=== PATIENT | female | born 1970 | race Caucasian/White ===

== ENCOUNTER 2020-07-16 13:32 | Emergency (ER) | payer MEDICAID ==
[~2020-07-16] VITALS: Ht 157.5 cm; Wt 43.9 kg
[~2020-07-16 13:32] MED LIST: CLIN150C8 PO; FLO0.4C PO; GABA600T PO; GABA600T13 PO; HYDR-4383 PO; HYDR28CR14 TOP; NITR100C6 PO; SERT25TA PO
[2020-07-16 16:03] VITALS: BP 131/86
[2020-07-16] MEDS ORDERED: PRED20TA PO (17:10)
== END 2020-07-16 17:28 | disposition home or self-care (01) ==
LOC: ER 13:32
DX: L23.9 Allergic contact dermatitis, unspecified cause (principal); Z87.448 Personal history of other diseases of urinary system; F15.10 Other stimulant abuse, uncomplicated; Z56.0 Unemployment, unspecified; Z59.0 Homelessness; Z88.0 Allergy status to penicillin; Z88.2 Allergy status to sulfonamides; Z79.899 Other long term (current) drug therapy
CPT/HCPCS: 99283

== ENCOUNTER 2020-08-16 10:43 | Emergency (ER) | payer MEDICAID ==
[~2020-08-16] VITALS: Ht 160 cm; Wt 41.7 kg
[~2020-08-16 10:43] MED LIST changes: +PRED20TA PO
[2020-08-16 14:50] VITALS: BP 124/82
[2020-08-16] MEDS ORDERED: clindamycin 150mg capsule PO ONE (17:20)
[2020-08-16] MEDS ORDERED: HYDROcodone/acetaminophen 5mg/325mg tablet PO ONE (17:20)
[2020-08-16] MEDS ORDERED: CLIN-97 PO (17:20)
== END 2020-08-16 17:46 | disposition home or self-care (01) ==
LOC: ER 10:46
DX: K08.89 Other specified disorders of teeth and supporting structures (principal); M19.90 Unspecified osteoarthritis, unspecified site; F31.9 Bipolar disorder, unspecified; F20.9 Schizophrenia, unspecified; F15.90 Other stimulant use, unspecified, uncomplicated; Z86.69 Personal history of other diseases of the nervous system and sense organs; Z87.442 Personal history of urinary calculi; Z98.890 Other specified postprocedural states; Z72.89 Other problems related to lifestyle; Z56.0 Unemployment, unspecified; Z59.0 Homelessness; Z88.2 Allergy status to sulfonamides; Z88.0 Allergy status to penicillin; Z79.2 Long term (current) use of antibiotics; Z79.899 Other long term (current) drug therapy
CPT/HCPCS: 99283

== ENCOUNTER 2021-06-09 18:25 | Emergency (ER) | payer MEDICAID ==
[~2021-06-09] VITALS: Ht 157.5 cm; Wt 52.3 kg
[~2021-06-09 18:25] MED LIST changes: +CLIN-97 PO; -PRED20TA PO
[2021-06-09 18:36] VITALS: BP 133/83
[2021-06-09] MEDS ORDERED: DOXYCYCLINE 100MG CAPSULE PO STA (19:19)
[2021-06-09] MEDS ORDERED: cephalexin 250mg capsule PO ONE (19:20)
[2021-06-09] MEDS ORDERED: CEPH250T PO (19:21)
[2021-06-09] MEDS ORDERED: DOXY100C76 PO (19:21)
== END 2021-06-09 19:38 | disposition home or self-care (01) ==
LOC: ER 18:26
DX: L02.01 Cutaneous abscess of face (principal); L03.211 Cellulitis of face; L03.213 Periorbital cellulitis; Z87.442 Personal history of urinary calculi; M79.7 Fibromyalgia; M19.90 Unspecified osteoarthritis, unspecified site; F15.90 Other stimulant use, unspecified, uncomplicated; Z98.891 History of uterine scar from previous surgery; Z56.0 Unemployment, unspecified; Z59.00 Homelessness unspecified; Z72.89 Other problems related to lifestyle; Z88.0 Allergy status to penicillin; Z88.2 Allergy status to sulfonamides; Z79.2 Long term (current) use of antibiotics; Z79.899 Other long term (current) drug therapy
CPT/HCPCS: 10060; 99283

== ENCOUNTER 2022-04-29 20:20 | Emergency (ER) | payer MEDICAID ==
[~2022-04-29] VITALS: Ht 157.5 cm; Wt 50.0 kg
[2022-04-29 20:49] VITALS: BP 134/75
[2022-04-29] MEDS ORDERED: bacitracin 15gm ointment TP ONE (21:10)
[2022-04-29] MEDS ORDERED: cephalexin 250mg capsule PO ONE (21:10)
[2022-04-29] MEDS ORDERED: ibuprofen 200mg tablet PO ONE (21:10)
[2022-04-29] MEDS ORDERED: CEPH-585 PO (21:21)
== END 2022-04-29 21:28 | disposition home or self-care (01) ==
LOC: ER 20:21
DX: L03.211 Cellulitis of face (principal); M19.90 Unspecified osteoarthritis, unspecified site; M79.7 Fibromyalgia; F15.90 Other stimulant use, unspecified, uncomplicated; F31.9 Bipolar disorder, unspecified; F20.9 Schizophrenia, unspecified; Z87.442 Personal history of urinary calculi; Z59.00 Homelessness unspecified; Z56.0 Unemployment, unspecified; Z72.89 Other problems related to lifestyle; Z88.0 Allergy status to penicillin; Z88.2 Allergy status to sulfonamides; Z79.899 Other long term (current) drug therapy
CPT/HCPCS: 99284

== ENCOUNTER 2023-04-01 15:16 | Emergency (ER) | payer MEDICAID ==
[~2023-04-01] VITALS: Ht 157.5 cm; Wt 49.5 kg
[~2023-04-01 15:16] MED LIST changes: +CEPH-585 PO; +CLIN-214 PO; -CLIN150C8 PO
[2023-04-01 15:42] VITALS: BP 105/77; PULSE 93; TEMP 98.3; O2SAT 98
[2023-04-01 16:11] VITALS: RESP 16
[2023-04-01] MEDS: ketorolac tromethamine 15mg/ml inj. IM ONE (16:11)
== END 2023-04-01 17:09 | disposition home or self-care (01) ==
LOC: ER 15:16
DX: M71.21 Synovial cyst of popliteal space [Baker], right knee (principal); M23.91 Unspecified internal derangement of right knee; M19.90 Unspecified osteoarthritis, unspecified site; F15.90 Other stimulant use, unspecified, uncomplicated; Z88.0 Allergy status to penicillin; Z88.2 Allergy status to sulfonamides; Z79.2 Long term (current) use of antibiotics; Z79.899 Other long term (current) drug therapy
CPT/HCPCS: 73564; 96372; 99283; J1885

== ENCOUNTER 2023-04-28 16:00 | Emergency (ER) | payer MEDICAID ==
[~2023-04-28] VITALS: Ht 157.5 cm; Wt 47.2 kg
[2023-04-28 16:03] VITALS: BP 102/65; PULSE 96; RESP 18; TEMP 98; O2SAT 98
[2023-04-28 17:31] LABS: BILIRUBIN,URINE NEGATIVE (Neg); CLARITY,URINE CLEAR (Clear); COLOR,URINE YELLOW (Yellow); GLUCOSE, URINE NEGATIVE (Neg); KETONES,URINE NEGATIVE (Neg); LEUKOCYTE ESTERASE ,URINE NEGATIVE (Neg); NITRITES, URINE NEGATIVE (Neg); OCCULT BLOOD,URINE TRACE-INTACT (Neg); PROTEIN,URINE NEGATIVE (Neg); UROBILINOGEN,URINE 0.2 E.U/dL (0.2-1.0)
[2023-04-28 17:43] LABS: UA COLLECTION TYPE CLN CATCH MIDSTREAM
[2023-04-28 17:56] LABS: BACTERIA,URINE FEW /HPF (Neg); MUCUS STRANDS FEW /LPF (Neg); RBC,URINE 0-2 /HPF (0-2); SQUAMOUS EPITHELIAL CELL,UR FEW /LPF (FEW); WBC,URINE 0-4 /HPF (0-4)
== END 2023-04-28 19:31 | disposition home or self-care (01) ==
LOC: ER 16:00
DX: B34.9 Viral infection, unspecified (principal); E86.0 Dehydration; Z20.822 Contact with and (suspected) exposure to COVID-19; F20.9 Schizophrenia, unspecified; Z79.899 Other long term (current) drug therapy; Z87.442 Personal history of urinary calculi; Z72.89 Other problems related to lifestyle; F15.90 Other stimulant use, unspecified, uncomplicated; Z59.00 Homelessness unspecified; Z56.0 Unemployment, unspecified; Z88.0 Allergy status to penicillin; Z88.2 Allergy status to sulfonamides; Z79.2 Long term (current) use of antibiotics
CPT/HCPCS: 36415; 71045; 81001; 87502; 87503; 87811; 99284

== ENCOUNTER 2023-05-28 10:24 | Emergency (ER) | payer MEDICAID ==
[~2023-05-28] VITALS: Ht 157.5 cm; Wt 54.5 kg
[~2023-05-28 10:24] MED LIST changes: +ATOM25CA6 PO; +BREX2TAB PO; +BUPR-73 PO; +BUPR1TAB44 SL; -CEPH-585 PO; +CHOL100046 PO; -CLIN-214 PO; -CLIN-97 PO; -FLO0.4C PO; -GABA600T PO; -HYDR-4383 PO; -HYDR28CR14 TOP; +HYDR453.2 TP; +LIDO700A47 TP; +NAPR220T67 PO; +NICO-687 TD; +NICO-907 BC; -NITR100C6 PO; -SERT25TA PO
[2023-05-28 11:04] VITALS: BP 124/82; PULSE 99; RESP 17; TEMP 98; O2SAT 99
[2023-05-28] MEDS ORDERED: BUPR1FIL17 SL (12:47)
== END 2023-05-28 13:02 | disposition home or self-care (01) ==
LOC: ER 10:25
DX: G89.29 Other chronic pain (principal); Z76.0 Encounter for issue of repeat prescription; M19.90 Unspecified osteoarthritis, unspecified site; M79.7 Fibromyalgia; F15.90 Other stimulant use, unspecified, uncomplicated; Z56.0 Unemployment, unspecified; Z59.00 Homelessness unspecified; Z88.0 Allergy status to penicillin; Z88.2 Allergy status to sulfonamides; Z88.8 Allergy status to other drugs, medicaments and biological substances; Z79.899 Other long term (current) drug therapy
CPT/HCPCS: 99281

== ENCOUNTER 2023-06-05 07:57 | Emergency (ER) | payer MEDICAID ==
[~2023-06-05] VITALS: Ht 157.5 cm; Wt 52.8 kg
[2023-06-05 08:02] VITALS: BP 112/75; PULSE 114; RESP 18; TEMP 97.7; O2SAT 98
[2023-06-05 10:43] LABS: BILIRUBIN,URINE NEGATIVE (Neg); CLARITY,URINE SLIGHTLY CLOUDY (Clear); COLOR,URINE YELLOW (Yellow); GLUCOSE, URINE NEGATIVE (Neg); KETONES,URINE NEGATIVE (Neg); LEUKOCYTE ESTERASE ,URINE NEGATIVE (Neg); NITRITES, URINE NEGATIVE (Neg); OCCULT BLOOD,URINE NEGATIVE (Neg); PROTEIN,URINE NEGATIVE (Neg); UROBILINOGEN,URINE 0.2 E.U/dL (0.2-1.0)
[2023-06-05 10:44] LABS: BASOPHILS % (AUTO) 0.6 % (0-1); EOSINOPHILS # (AUTO) 0.1 X10'3 (0-0.9); EOSINOPHILS % (AUTO) 2.2 % (0-6); HEMATOCRIT 36.7 % (35.0-45.0); HEMOGLOBIN 12.1 g/dl (12.0-16.0); LYMPHOCYTES # (AUTO) 1.2 X10'3 (1.1-4.8); LYMPHOCYTES % (AUTO) 25.6 % (21-51); MEAN CORPUSCULAR HEMOGLOBIN 28.5 PG (27.0-31.0); MEAN CORPUSCULAR VOLUME 86.6 FL (78-98); MEAN PLATELET VOLUME 8.6 FL (7.4-10.4); MONOCYTES # (AUTO) 0.5 X10'3 (0-0.9); MONOCYTES % (AUTO) 9.8 % (2-12); NEUTROPHILS % (AUTO) 61.8 % (42-75); PLATELET COUNT 203 X10'3 (140-440); RED BLOOD COUNT 4.24 X10'6 (4.20-5.60); RED CELL DISTRIBUTION WIDTH 14.8 % (11.5-14.5); WHITE BLOOD COUNT 4.8 X10'3 (4.5-11.0)
[2023-06-05 10:49] LABS: SQUAMOUS EPITHELIAL CELL,UR MANY /LPF (FEW); UA COLLECTION TYPE CLN CATCH MIDSTREAM
[2023-06-05 10:50] LABS: BACTERIA,URINE FEW /HPF (Neg); RBC,URINE NONE SEEN /HPF (0-2); WBC,URINE 0-4 /HPF (0-4)
[2023-06-05] MEDS: CefTRIAXone/D5W-Rocephin 1gm 50 ML IV ONE (11:30)
[2023-06-05] MEDS ORDERED: clindamycin 300mg/D5W 50mL 50 ML IV SCH ×2 (11:40→14:00)
[2023-06-05 11:43] LABS: ALANINE AMINOTRANSFERASE 42 U/L (12-78); ALBUMIN 3.3 G/DL (3.4-5.0); ALBUMIN/GLOBULIN RATIO 0.8 (1.1-1.5); ALKALINE PHOSPHATASE 98 IU/L (46-116); ANION GAP 10 (8-16); ASPARTATE AMINO TRANSFERASE 28 U/L (10-37); BILIRUBIN,TOTAL 0.3 MG/DL (0.1-1.0); BLOOD UREA NITROGEN 14 MG/DL (7-18); BUN/CREATININE RATIO 18.9 (10.0-20.0); C-REACTIVE PROTEIN 1.41 MG/DL (0.0-0.5); CALCIUM 8.5 MG/DL (8.5-10.1); CHLORIDE 103 MMOL/L (99-107); CREATININE 0.74 MG/DL (0.40-0.90); GLUCOSE 102 MG/DL (70-104); POTASSIUM 4.2 MMOL/L (3.5-5.1); SODIUM 139 MMOL/L (135-145); TOTAL CARBON DIOXIDE 25.7 MMOL/L (24-32); TOTAL PROTEIN 7.3 G/DL (6.4-8.2); eCRCL 72 ML/MIN; eGFR 83 ML/MIN
[2023-06-05] MEDS: clindamycin 300mg/D5W 50mL 50 ML IV ONE (12:01)
[2023-06-05 16:24] LABS: URINE AMPHETAMINE SCREEN NEGATIVE (Neg); URINE BARBITUATE SCREEN NEGATIVE (Neg); URINE BENZODIAZEPINES SCREEN NEGATIVE (Neg); URINE CANNABINOID SCREEN NEGATIVE (Neg); URINE COCAINE SCREEN NEGATIVE (Neg); URINE METHADONE SCREEN NEGATIVE (Neg); URINE OPIATE SCREEN NEGATIVE (Neg); URINE PHENCYCLIDINE SCREEN NEGATIVE (Neg)
== END 2023-06-05 12:55 | disposition home or self-care (01) ==
LOC: ER 07:58
DX: L03.011 Cellulitis of right finger (principal); F20.9 Schizophrenia, unspecified; F15.90 Other stimulant use, unspecified, uncomplicated; Z88.8 Allergy status to other drugs, medicaments and biological substances; Z88.0 Allergy status to penicillin; Z98.890 Other specified postprocedural states; Z72.89 Other problems related to lifestyle; Z59.00 Homelessness unspecified; Z56.0 Unemployment, unspecified
CPT/HCPCS: 10060; 36415; 73130; 80053; 80305; 81001; 83605; 84145; 85025; 85651; 86140; 87040; 87070; 87077; 87186; 96365; 96366; 96368; 99284; A6222; J0696; J3490; A6258; A6449

== ENCOUNTER 2023-06-12 16:08 | Emergency (ER) | payer MEDICAID ==
[~2023-06-12] VITALS: Ht 157.5 cm; Wt 53.2 kg
[2023-06-12 16:24] VITALS: BP 115/79; PULSE 94; RESP 18; TEMP 97.3; O2SAT 99
== END 2023-06-12 17:07 | disposition home or self-care (01) ==
LOC: ER 16:09
DX: L03.011 Cellulitis of right finger (principal); M19.90 Unspecified osteoarthritis, unspecified site; F15.90 Other stimulant use, unspecified, uncomplicated; Z88.5 Allergy status to narcotic agent; Z88.0 Allergy status to penicillin; Z88.2 Allergy status to sulfonamides; Z79.899 Other long term (current) drug therapy; Z98.890 Other specified postprocedural states
CPT/HCPCS: 99283

== ENCOUNTER 2023-06-14 19:58 | Emergency (ER) | payer MEDICAID ==
[~2023-06-14] VITALS: Ht 157.5 cm; Wt 52.8 kg
[2023-06-14 20:01] VITALS: BP 125/69; PULSE 91; RESP 18; TEMP 97; O2SAT 99
[2023-06-14] MEDS ORDERED: BUPR1TAB39 SL (20:22)
== END 2023-06-14 20:34 | disposition home or self-care (01) ==
LOC: ER 19:58
DX: G89.29 Other chronic pain (principal); F20.9 Schizophrenia, unspecified; F15.90 Other stimulant use, unspecified, uncomplicated; Z76.0 Encounter for issue of repeat prescription; Z88.8 Allergy status to other drugs, medicaments and biological substances; Z88.0 Allergy status to penicillin; Z88.2 Allergy status to sulfonamides; Z79.899 Other long term (current) drug therapy; Z87.442 Personal history of urinary calculi; Z98.890 Other specified postprocedural states; Z72.89 Other problems related to lifestyle; Z59.00 Homelessness unspecified; Z56.0 Unemployment, unspecified
CPT/HCPCS: 99281

== ENCOUNTER 2023-06-19 11:43 | Emergency (ER) | payer MEDICAID ==
[~2023-06-19] VITALS: Ht 167.6 cm; Wt 51.0 kg
[~2023-06-19 11:43] MED LIST changes: +BUPR1TAB39 SL
[2023-06-19 11:58] VITALS: BP 116/88; PULSE 89; RESP 18; TEMP 98; O2SAT 98
[2023-06-19] MEDS ORDERED: GABA600T13 PO (12:29)
== END 2023-06-19 12:36 | disposition home or self-care (01) ==
LOC: ER 11:43
DX: Z76.0 Encounter for issue of repeat prescription (principal)
CPT/HCPCS: 99281

== ENCOUNTER 2024-08-21 16:54 | Emergency (ER) | payer MEDICAID ==
[~2024-08-21] VITALS: Ht 157.5 cm; Wt 45.4 kg
[~2024-08-21 16:54] MED LIST changes: +GABA-1405 PO; -GABA600T13 PO
[2024-08-21 16:59] VITALS: TEMP 98.5
--- NOTE | 2024-08-21 17:07 | Physician Documentation ---
History of Present Illness ~ Chief Complaint: Flank Pain Stated Complaint: FEVER Time Seen by MD: 17:07 Primary Medical Doctor: [facility] This is a 53-year-old female who presents to the emergency department reporting that she has felt unwell for the last three days, thinks she has a fever, does note some dysuria at the end of urination, and does have some flank pain. She also notes that she has been out of her chronic gabapentin for the last several days. She notes a history of head injury, mental illness, fibromyalgia. Medication Reconciliation Allergies: Coded Allergies: trazodone (Verified Allergy, Severe, seizures, 07/10/24) Penicillins (Verified Allergy, Unknown, 07/10/24) Sulfa (Sulfonamide Antibiotics) (Verified Allergy, Unknown, 07/10/24) Scheduled Atomoxetine HCl (Atomoxetine HCl), 25 MG PO DAILY Brexpiprazole (Rexulti), 1 TAB PO HS Buprenorphine HCl/Naloxone HCl (Buprenorphn-Naloxn 2-0.5 mg Tb), 1 TAB SL BID@0800,1800 Buprenorphine HCl/Naloxone HCl (Zubsolv 1.4-0.36 mg Tablet Sl), 1 TAB SL DAILY Bupropion HCl (Bupropion HCl Sr), 1 TAB PO BIDBL Cholecalciferol (Vitamin D3) (Vitamin D3), 1,000 UNIT PO DAILY Doxycycline Hyclate (Doxycycline Hyclate), 1 CAP PO Q12H Gabapentin (Gabapentin), 2 TAB PO TID Gabapentin (Gabapentin), 2 TAB PO Q8H Hydrocortisone (Hydrocortisone), 1 APPLIC TP BID Nicotine 21 MG Patch* (Habitrol 21 MG Patch*), 1 PATCH TD DAILY Scheduled PRN Lidocaine (Lidocaine), 1 PATCH TP DAILY PRN for pain Naproxen Sodium (Aleve), 220 MG PO BID PRN for pain Nicotine Polacrilex (Nicotine Lozenge), 2 MG BC TID PRN for NICOTINE CRAVING Past Medical History Past Medical History: Seizures, Kidney Stones, UTI, Arthritis, Fibromyalgia, Psoriasis, *INFECTIOUS DZ*, *PSYCH*, Bipolar, Schizophrenia Past Surgical History: Patient History: FH: emphysema FATHER FH: manic depression MOTHER Alcohol Use: Occasionally Drug Use: methamphetamine Lives with: Other Lives In: Homeless Occupation: unemployed Review of Systems ROS As stated above in the HPI, otherwise all systems are reviewed and negative. Physical Exam Vital Signs: Temperature: 98.5, Source: Oral, Heart Rate: 79, Respiratory Rate: 16, BP: 113/78, Pulse Oximetry: 98, Weight: 45.350 Oxygen Flow Rate: 0 Physical Exam General: Alert, no apparent distress. Neck: Full range of motion. Respiratory: Lungs clear, no respiratory distress. Chest: No accessory muscle use. Cardiovascular: Regular rate and rhythm, no murmurs. Gastrointestinal: Soft, nontender, nondistended. Bowels sounds present. Extremities: Normal range of motion, no deformity. Neurologic: Oriented x4. Psychiatric: Normal mood and affect. Skin: Normal color, warm and dry. No edema, no ecchymosis. Progress Results/Orders Results/Orders Orders - QIANA STANTON REVIEW TRAINER * Miscellaneous Nursing Orders (08/21/24 17:47) Completed Orders - QIANA STANTON REVIEW TRAINER Ceftriaxone Im Kit W/Lidocaine (Rocephin (08/21/24 17:50) Ondansetron Disint. Tablet (Zofran Odt T (08/21/24 17:50) Gabapentin Capsule (Neurontin Capsule) (08/21/24 17:50) Acetaminophen 325mg Tablet (Tylenol Tabl (08/21/24 17:50) Gabapentin Capsule (Neurontin Capsule) (08/21/24 17:50) Vital Signs 08/21/24 16:59 Temp 98.5 Pulse 79 Resp 16 B/P (MAP) 113/78 Pulse Ox 98 O2 Flow Rate 0 Laboratory Tests Test 08/21/24 17:05 Urine Specimen Description Cln catch midstream Urine Color Yellow Urine Clarity Cloudy Urine pH 6.5 Urine Specific [place] 1.020 Urine Protein Negative Urine Glucose (UA) Negative Urine Ketones Trace H Urine Occult Blood Negative Urine Nitrite Positive H Urine Bilirubin Negative Urine Urobilinogen 0.2 Urine Leukocyte Esterase Small H Urine RBC None seen Urine WBC 20-30 H Urine Squamous Epithelial Cells Few Urine Renal Cells Few Urine Amorphous Phosphates 3+ Urine Bacteria 4+ Urine Culture Indicated Indicated Volume Urine Centrifuged 10 ml Urine Comment Medical Decision Making Additional Comment 53-year-old female presents due to concerns for urinary tract infection symptoms. She does if your systemically unwell, and endorses possible fevers and also nausea. She is un-housed, it is a very hot day, and it is likely that she is somewhat dehydrated. However, her vital signs are normal. She is found to have urinary tract infection. She does also note that she has been out of her chronic gabapentin 1200 mg t.i.d. for the last several days. This could also be the reason that she is having her symptoms. She will have a refill of her gabapentin. She will be treated in the emergency department with ceftriaxone 1 g IM and sent home on doxycycline due to allergies to penicillins and sulfa antibiotics. She is to return if worse. Departure Time of Disposition: 17:48 Disposition: HOME / SELF CARE / HOMELESS Impression: Primary Impression: Acute urinary tract infection Additional Impression: Medication refill Condition: Stable Discharge Instructions: Urinary Tract Infection, Adult Additional Instructions: You are given a refill on your gabapentin. Please see your primary care provider or [facility] for further refills. You have a urinary tract infection. You were given your 1st dose of antibiotics as an injection in the emergency department. Start your doxycycline once you have received that prescription. Please return if worse. Please stay hydrated. Use the ondansetron if needed for nausea. Referrals: NO PRIMARY CARE PROVIDER (PCP) Prescriptions Ondansetron 8mg ODT (Ondansetron Odt) 8 Mg Tab.rapdis 1 TAB PO Q8H for nausea/vomiting for 2 Days, #6 TAB 0 Refills Prov: QIANA STANTON NP 08/21/24 Doxycycline Hyclate (Doxycycline Hyclate) 100 Mg Capsule 1 CAP PO Q12H for 7 Days, #14 CAP Prov: QIANA STANTON NP 08/21/24 Gabapentin (Gabapentin) 600 Mg Tablet 2 TAB PO Q8H for 30 Days, #180 TAB 0 Refills Prov: QIANA STANTON NP 08/21/24 Education Educated: Patient, Family Educated regarding: diagnosis, treatment, prognosis, need for follow up Signature Scribe Signature: no scribe Attestation: The note accurately reflects work and decisions made by me.Qiana Youngblood NP 08/21/24 17:06 QIANA STANTON NP Aug 21, 2024 17:07
[2024-08-21] MEDS ORDERED: GABA-1405 PO (17:26)
[2024-08-21 17:36] LABS: LEUKOCYTE ESTERASE ,URINE SMALL (Neg); NITRITES, URINE POSITIVE (Neg); OCCULT BLOOD,URINE NEGATIVE (Neg)
[2024-08-21 17:46] LABS: UA COLLECTION TYPE CLN CATCH MIDSTREAM
[2024-08-21 17:48] LABS: AMORPHOUS PHOSPHATES 3+; RENAL CELLS, URINE FEW /HPF; SQUAMOUS EPITHELIAL CELL,UR FEW /LPF (FEW)
[2024-08-21] MEDS ORDERED: DOXY-1 PO (17:50)
[2024-08-21] MEDS ORDERED: ONDA-245 PO (18:01)
[2024-08-21] MEDS: ondansetron 4mg rapidly disintigrating tab PO ONE (18:10)
[2024-08-21] MEDS: CefTRIAXone 1000mg IM Kit (w/lidocaine diluent) IM ONE (18:11)
[2024-08-21 18:26] VITALS: BP 115/83; PULSE 73; RESP 16; O2SAT 98
[2024-08-22] MEDS ORDERED: BUPR1FIL3 SL (09:49)
[2024-08-22] MEDS ORDERED: NALO4SPR22 (10:42)
[2024-08-25] MEDS ORDERED: MELO-102 PO (11:19)
== END 2024-08-21 18:27 | disposition home or self-care (01) ==
LOC: ER 16:55
DX: N39.0 Urinary tract infection, site not specified (principal); Z76.0 Encounter for issue of repeat prescription; R50.9 Fever, unspecified; F20.9 Schizophrenia, unspecified; F31.9 Bipolar disorder, unspecified; M19.90 Unspecified osteoarthritis, unspecified site; M79.7 Fibromyalgia; F15.90 Other stimulant use, unspecified, uncomplicated; Z88.0 Allergy status to penicillin; Z88.2 Allergy status to sulfonamides; Z88.8 Allergy status to other drugs, medicaments and biological substances
CPT/HCPCS: 81001; 87077; 87088; 87186; 96372; 99284; J0696

== ENCOUNTER 2024-08-22 09:40 | Emergency (ER) | payer MEDICAID ==
[~2024-08-22] VITALS: Ht 157.5 cm; Wt 42.9 kg
[~2024-08-22 09:40] MED LIST changes: +DOXY-1 PO; +ONDA-245 PO
--- NOTE | 2024-08-22 09:44 | Physician Documentation ---
HPI ~ General Stated Complaint: MED REQUEST Time Seen by MD: 09:43 Primary Medical Doctor: [facility] History of Present Illness HPI Comments Presents to the ER requesting that medications that were sent yesterday be re- sent to another pharmacy that is open. In addition, she notes that she is out of suboxone and neglected to request a refill on this yesterday. Medication Reconciliation Allergies: Coded Allergies: trazodone (Verified Allergy, Severe, seizures, 07/10/24) Penicillins (Verified Allergy, Unknown, 07/10/24) Sulfa (Sulfonamide Antibiotics) (Verified Allergy, Unknown, 07/10/24) Scheduled Atomoxetine HCl (Atomoxetine HCl), 25 MG PO DAILY Brexpiprazole (Rexulti), 1 TAB PO HS Buprenorphine HCl/Naloxone HCl (Buprenorphn-Naloxn 2-0.5 mg Tb), 1 TAB SL BID@ 0800,1800 Buprenorphine HCl/Naloxone HCl (Zubsolv 1.4-0.36 mg Tablet Sl), 1 TAB SL DAILY Buprenorphine Hcl/Naloxone Hcl (Suboxone 8 Mg-2 Mg Sl Film), 1 STRIP SL BID Bupropion HCl (Bupropion HCl Sr), 1 TAB PO BIDBL Cholecalciferol (Vitamin D3) (Vitamin D3), 1,000 UNIT PO DAILY Doxycycline Hyclate (Doxycycline Hyclate), 1 CAP PO Q12H Gabapentin (Gabapentin), 2 TAB PO TID Gabapentin (Gabapentin), 2 TAB PO Q8H Hydrocortisone (Hydrocortisone), 1 APPLIC TP BID Naloxone HCl (Naloxone HCl), 1 SPR NA as needed Nicotine 21 MG Patch* (Habitrol 21 MG Patch*), 1 PATCH TD DAILY Ondansetron 8mg ODT (Ondansetron Odt), 1 TAB PO Q8H Scheduled PRN Lidocaine (Lidocaine), 1 PATCH TP DAILY PRN for pain Naproxen Sodium (Aleve), 220 MG PO BID PRN for pain Nicotine Polacrilex (Nicotine Lozenge), 2 MG BC TID PRN for NICOTINE CRAVING Past Medical History Past Medical History: Seizures, Kidney Stones, UTI, Arthritis, Fibromyalgia, Psoriasis, *INFECTIOUS DZ*, *PSYCH*, Bipolar, Schizophrenia Past Surgical History: Patient History: FH: emphysema FATHER FH: manic depression MOTHER Alcohol Use: Occasionally Drug Use: methamphetamine Lives with: Other Lives In: Homeless Occupation: unemployed Review of Systems ROS As stated above in the HPI, otherwise all systems are reviewed and negative. Physical Exam Physical Exam Physical Exam General: Alert, no apparent distress. Neck: Full range of motion. Respiratory: Lungs clear, no respiratory distress. Chest: No accessory muscle use. Cardiovascular: Regular rate and rhythm, no murmurs. Gastrointestinal: Soft, nontender, nondistended. Bowels sounds present. Extremities: Normal range of motion, no deformity. Neurologic: Oriented x4. Psychiatric: Normal mood and affect. Skin: Normal color, warm and dry. No edema, no ecchymosis. Progress Results/Orders Results/Orders Completed Orders - QIANA STANTON NP Buprenorphine/Naloxone Sl Film (Suboxone (08/22/24 09:50) Buprenorphine/Naloxone Sl Film (Suboxone (08/22/24 09:50) Vital Signs 08/22/24 09:47 Temp 98.2 Pulse 98 Resp 16 B/P (MAP) 143/82 Pulse Ox 98 O2 Flow Rate 0 Medical Decision Making Differential Dx:Considerations: Include: Adverse circumstances, Economic, Psychosocial, Medical services unavail., Medication refill, Medication non- compliance Departure Time of Disposition: 10:40 Disposition: 01 HOME / SELF CARE / HOMELESS Impression: Primary Impression: UTI (urinary tract infection) Additional Impressions: Medication refill Opioid dependence Additional Impression Text Take the medications as prescribed. Return if worse, otherwise followup with your primary care. Discharge Instructions: Opioid Use Disorder Referrals: NO PRIMARY CARE PROVIDER (PCP) Prescriptions Naloxone HCl (Naloxone HCl) 4 Mg/Actuation [place] 1 SPR NA as needed for opioid overdose for 1 Day, #1 SPRAYS Prov: QIANA STANTON NP 08/22/24 Buprenorphine Hcl/Naloxone Hcl (Suboxone 8 Mg-2 Mg Sl Film) 8 Mg-2 Mg Film 1 STRIP SL BID for 7 Days, #14 STRIP Prov: QIANA STANTON NP 08/22/24 Ondansetron 8mg ODT (Ondansetron Odt) 8 Mg Tab.rapdis 1 TAB PO Q8H for nausea/vomiting for 2 Days, #6 TAB 0 Refills Prov: QIANA STANTON NP 08/22/24 Doxycycline Hyclate (Doxycycline Hyclate) 100 Mg Capsule 1 CAP PO Q12H for 7 Days, #14 CAP Prov: QIANA STANTON NP 08/22/24 Gabapentin (Gabapentin) 600 Mg Tablet 2 TAB PO Q8H for 30 Days, #180 TAB 0 Refills Prov: QIANA STANTON NP 08/22/24 Education Educated: Patient Educated regarding: diagnosis, treatment, prognosis, need for follow up Signature Scribe Signature: No scribe Attestation: The note accurately reflects work and decisions made by me.Qiana Youngblood NP 08/22/24 11:28 QIANA STANTON NP Aug 22, 2024 09:44
[2024-08-22 09:47] VITALS: BP 143/82; PULSE 98; RESP 16; TEMP 98.2; O2SAT 98
[2024-08-22] MEDS ORDERED: BUPR1FIL3 SL (09:49)
[2024-08-22] MEDS ORDERED: buprenorphine/naloxone 8MG-2MG SUBlingual film SL ONE (09:50)
[2024-08-22] MEDS ORDERED: buprenorphine/naloxone 8MG-2MG SUBlingual film SL SCH (09:50)
[2024-08-22] MEDS ORDERED: NALO4SPR22 (10:42)
[2024-08-25] MEDS ORDERED: MELO-102 PO (11:19)
== END 2024-08-22 10:57 | disposition home or self-care (01) ==
LOC: ER 09:41
DX: N39.0 Urinary tract infection, site not specified (principal); M19.90 Unspecified osteoarthritis, unspecified site; F31.9 Bipolar disorder, unspecified; F20.9 Schizophrenia, unspecified; F11.20 Opioid dependence, uncomplicated; M79.7 Fibromyalgia; F15.90 Other stimulant use, unspecified, uncomplicated; Z87.442 Personal history of urinary calculi; Z76.0 Encounter for issue of repeat prescription; Z88.0 Allergy status to penicillin; Z88.2 Allergy status to sulfonamides; Z88.6 Allergy status to analgesic agent; Z56.0 Unemployment, unspecified; Z79.899 Other long term (current) drug therapy; Z59.00 Homelessness unspecified; Z72.89 Other problems related to lifestyle
CPT/HCPCS: 99281